=== PATIENT | male | born 1995 | race African-American/Black ===

== ENCOUNTER 2017-04-25 17:55 | Emergency (ER) | payer BC, OTHER ==
[~2017-04-25] VITALS: Ht 182.9 cm; Wt 77.1 kg
[2017-04-25 18:14] VITALS: BP 128/70
--- NOTE | 2017-04-25 18:14 | NUR ---
Patient ambulated to bed 06.
--- NOTE | 2017-04-25 18:23 | NUR ---
PT C/O YENY SHOULDER, LEFT KNEE, RIGHT RIBS AND NECK PAIN 8/10. DENIES N/V/D; SKIN IS PINK/WARM/DRY; AAOX4 WITH EVEN AND STEADY GAIT; LUNGS CLEAR BL; HR EVEN AND REGULAR; PT DENIES ANY FEVER, CP, SOB, OR COUGH AT THIS TIME; PATIENT STATES PAIN OF 9/10 AT THIS TIME; VSS; PATIENT POSITIONED FOR COMFORT; HOB ELEVATED; BEDRAILS UP X2; BED DOWN. ER MD MADE AWARE OF PT STATUS.
--- NOTE | 2017-04-25 18:31 | NUR ---
ER MD DR. COOPER EVALUATING PT AT BEDSIDE.
--- NOTE | 2017-04-25 18:52 | NUR ---
Patient taken to XRAY via wheelchair.
--- NOTE | 2017-04-25 19:11 | NUR ---
Adan hdez in ED - 04/25/17 at 1926 by ETHAN REPORT GIVEN TO MANNY HUTCHINSON FOR CONTINUATION OF CARE
--- NOTE | 2017-04-25 19:11 | NUR ---
RECEIVED REPORT FROM ISRAEL BRYANT, TRANSFER OF CARE AT THIS TIME.
[2017-04-25 19:22] VITALS: BP 131/79
--- NOTE | 2017-04-25 19:22 | NUR ---
Patient discharged with v/s stable. Written and verbal after care instructions given and explained. Patient alert, oriented and verbalized understanding of instructions. Ambulatory with steady gait. All questions addressed prior to discharge. ID band removed. Patient advised to follow up with PMD. Rx of FLEXERIL 5MG, IBUPROFEN 800MG, NORCO 5MG-325MG given. Patient educated on indication of medication including possible reaction and side effects. Opportunity to ask questions provided and answered.
== END 2017-04-25 19:22 | disposition home or self-care (01) ==
LOC: MED 17:55
DX: S13.4XXA Sprain of ligaments of cervical spine, initial encounter (principal); M25.512 Pain in left shoulder; M25.511 Pain in right shoulder; V49.9XXA Car occupant (driver) (passenger) injured in unspecified traffic accident, initial encounter; Y93.89 Activity, other specified; Y92.89 Other specified places as the place of occurrence of the external cause; Y99.8 Other external cause status
CPT/HCPCS: 71101; 99284